=== PATIENT | male | born 1960 | race Caucasian/White ===

== ENCOUNTER 2022-02-10 15:55 | Inpatient (IN) ==
--- NOTE | 2022-02-10 16:30 | XRay Report ---
XR chest 1V portable HISTORY: Shortness of breath. COMPARISON: Chest 07/04/2021. FINDINGS: Dextroscoliosis of the thoracic spine again noted. The heart is normal in size. No focal sonal ng consolidations to suggest pneumonia. No evidence for pulmonary edema. No pleural effusions. No pne umothorax. Postoperative changes within the upper abdomen and right shoulder again noted. IMPRESSION: No significant change compared to the prior study. No acute process. ACT 112: Negative or not required by law. Electronically signed by: Braxton Rider M.D. 02/10/2022 4:28 PM
[2022-02-10] MEDS ORDERED: cefTRIAXone SODIUM 2,000 MG/70 ML BAG IV STA (17:58)
[2022-02-10] MEDS ORDERED: HYDROmorphone INJ 0.5 MG/0.5 ML SYR IV STA (17:58)
[2022-02-10] MEDS ORDERED: SODIUM CHLORIDE 0.9% 1000ML 1,000 ML IV STA (17:58)
[2022-02-10 18:32] LABS: Alanine Aminotransferase 202 U/L (7-52); Albumin Globulin Ratio 1.5 (0.9-2); Albumin Level 2.8 gm/dl (3.4-5.0); Alkaline Phosphatase 952 U/L (34-104); Anion Gap 18 (3-11); Aspartate Aminotransferase 279 U/L (13-39); BUN Creatinine Ratio 8.4 (10-20); Blood Urea Nitrogen 38 mg/dl (6-23); Calcium 6.4 mg/dl (8.5-10.1); Carbon Dioxide 11 mmol/L (21-32); Chloride 95 mmol/L (98-107); Est GFR (African American) 15.3 ml/min; Est GFR (Non-African American) 13.2 ml/min; Globulin 1.9 gm/dl (2.5-4.0); Glucose 87 mg/dl (70-99(Fasting)); INR 3.3 (0.9-1.1); Partial Thromboplastin Ratio 2.4; Potassium 3.3 mmol/L (3.5-5.1); Prothrombin Time 33.2 Seconds (9.0-12.0); Sodium 124 mmol/L (136-145); Total Protein 4.7 gm/dl (6.0-8.3)
[2022-02-10 18:37] LABS: Troponin I High Sensitivity 52.9 pg/ml (0-20)
[2022-02-10 18:39] LABS: Partial Thromboplastin Time 65.1 Seconds (21.0-31.0)
--- NOTE | 2022-02-10 19:09 | Emergency Department Note ---
Impression & Plan Bilateral cellulitis of lower leg, LIOR (acute kidney injury), Elevated LFTs, Bilateral edema of lower extremity, Elevated troponin, Acute hyponatremia ED Provider Note INFORMANT: Patient and family ED PROVIDER(S): Wilton Chang MD CHIEF COMPLAINT: Leg pain PLAN: Disposition: Admitted Condition: Guarded Outpatient prescription management: none Referral: None MEDICAL DECISION MAKING: Patient presented to emergency department because of leg pain. On physical examination this was very concerning for cellulitis. History is also very concerning because of his liver transplant status. work-up was initiated. The patient was found to have pancytopenia on CBC. His chemistry panel revealed hyponatremia as well as an elevated creatinine concerning for LIOR. The patient was gently hydrated. He was given broad-spectrum antibiotics. Patient was also given IV Dilaudid. Attempts at blood cultures were done multiple times but these were unsuccessful. Antibiotics were administered. The patient was also found to have a slightly elevated INR as well as elevated LFTs. He had low albumin and protein. His ECG did not show any acute ischemic change. The nonspecific inferior and anterior changes were resolved when compared to prior. Patient was found to have mildly elevated troponin. He will need further management in the hospital. [facility] Patient was evaluated in the ER admitted for further management Triage Nursing notes reviewed and agree them. Vital Signs: reviewed and remarkable for no significant abnormalities Differential diagnosis: Cellulitis, abscess, MRSA infection, DVT, necrotizing fasciitis, dermatitis, drug eruption, allergic reaction, as well as other pathologies. Diagnostics interpreted by me: ECG: Twelve-lead ECG reveals a sinus rhythm with PACs at 95 bpm. Septal Q wave. Prolonged QT present. When compared to July 04, 2021 the nonspecific T wave inferior and anterior changes resolved. Cardiac Monitoring: Cardiac monitoring ordered by me: The patient was placed on continuous cardiac monitoring and observed. It revealed a normal sinus rhythm at 99 beats per minute without evidence of dysrhythmia. Imaging studies: Ultrasound imaging of the bilateral lower extremities did not reveal any evidence of DVT Chest x-ray. Findings: A chest x-ray was performed and revealed no pneumothorax, effusion, infiltrate, pulmonary edema, free air under the diaphragm, or wide mediastinum. Impression: No acute disease. HPI: The patient is a 61year old male who presents to the Emergency Room with co mplaints of leg swelling and pain. This started a week ago and is worsening. The patient also notes the following associated symptoms, chills, redness to the skin on both legs, fluid weeping from the legs, chronic back pain. The patient has found no relieving factors. Current pain is rated as 9/10. Patient has a history of liver transportation. Patient denies any trauma to the legs. Pt denies LOC, headache, fevers, diaphoresis, visual changes, neck pain, chest pain, breathing difficulties, nausea, vomiting, abdominal pain, melena, hematochezia, urinary symptoms, numbness, weakness, lymphadenopathy, rash, or other complaints. ROS: See above HPI for pertinent positives & negatives. A total of 10 systems reviewed and were otherwise negative. PAST MEDICAL HISTORY:See Below , end-stage liver disease PAST SURGICAL HISTORY:See Below, liver transportation FAMILY HISTORY:See Below SOCIAL HISTORY:See Below, occasional alcohol HOME MEDICATIONS:See Below ALLERGIES:See Below VITALS:See Below PHYSICAL EXAMINATION: GENERAL: Awake, alert, uncomfortable-appearing, in no distress HENT: Normocephalic, atraumatic. Oropharynx unremarkable. EYES: Normal conjunctiva. Sclera mildly-icteric. NECK: Inspection normal. Non-tender. Supple. No nuchal rigidity. FROM. No masses. RESPIRATORY: Clear to auscultation. No wheezes. No rales. Normal respiratory effort. CARDIAC: Normal rate. Normal rhythm. No murmurs. No rubs. Extremities warm and well perfused. Pulses equal. No JVD. GI: Soft, non-distended. No tenderness to palpation. No rebound or guarding. No masses. RECTAL: Deferred. MUSCULOSKELETAL: Atraumatic. Chest examination reveals no tenderness. The back is symmetrical on inspection without obvious abnormality. There is no CVA tenderness to palpation. No joint edema. LOWER EXTREMITIES: Calves are equal size bilaterally and moderately-tender. 3+ edema. Significant erythematous discoloration. NEURO: Normal sensorium. No sensory or motor deficits noted. SKIN: No rash or jaundice noted. CRITICAL CARE: I have personally spent greater than 31 minutes of critical care time in the direct management of this patient. This includes bedside care, interpretation of diagnostic studies, and testing, discussion with consultants, patient, and family members, and other required patient management activities. These minutes are in excess of all separately billable procedures. Wilton Chang MD Past Med/Surg History Social History Smoking Status: Never smoker Second Hand Exposure: Yes; Do You Dip or Chew Tobacco: No; Tobacco Cessation Education Requested by Patient: No Hx Alcohol Use: Yes Alcohol type: beer Hx Substance Use: No Preferred Language: Slovenian Communication Ability: Impaired Manager Strategy Required: No Beliefs That Will Affect Care: Buddhism Current Living Situation: Alone Current Living Situation Comment: house Other Information That Helps Us Care for You: Yes (sister yesterday) Feels Safe at Home: Yes Safety Concerns: Feels Safe At This Time Assistive Devices: Cane Allergies Allergies Allergy/AdvReac Type Severity Reaction Status Date / Time sulfamethoxazole Allergy Hives Unverified 07/04/21 08:55 [From Bactrim] trimethoprim [From Bactrim] Allergy Hives Unverified 07/04/21 08:55 Home Meds Home Medications Medication Instructions Recorded Confirmed snrgmrir-hxh-thydr acid 500 1 tab PO QAM 12/19/20 07/04/21 mcg-lycopene 300 mcg-lutein 250 mcg tablet ondansetron 4 mg disintegrating 4 mg PO QID PRN Nausea 12/19/20 07/04/21 tablet thiamine HCl (vitamin B1) 100 mg 100 mg PO QAM 12/19/20 07/04/21 tablet ergocalciferol (vitamin D2) 1,250 50,000 unit PO WK 07/04/21 07/04/21 mcg (50,000 unit) capsule (Vitamin D2) folic acid 1 mg tablet 1 mcg PO QAM 07/04/21 07/04/21 magnesium oxide 400 mg (241.3 mg 400 mg PO BID 07/04/21 07/04/21 magnesium) tablet methylprednisolone 4 mg tablet 4 mg PO QAM 07/04/21 07/04/21 mycophenolate sodium 180 mg 360 mg PO BID 07/04/21 07/04/21 tablet,delayed release nifedipine 30 mg tablet,extended 30 mg PO HS 07/04/21 07/04/21 release 24 hr pantoprazole 40 mg tablet,delayed 40 mg PO BID 07/04/21 07/04/21 release sennosides 8.6 mg-docusate sodium 2 tab PO DAILY PRN Constipation 07/04/21 07/04/21 50 mg tablet (Stimulant Laxative Plus) sucralfate 1 gram tablet 1 g PO BID 07/04/21 07/04/21 tacrolimus 1 mg capsule, 1 mg PO BID 07/04/21 07/04/21 immediate-release tacrolimus 5 mg capsule, 5 mg PO BID 07/04/21 07/04/21 immediate-release Results & Data (ED) Vital Signs Vital Signs - 24 hr 02/10/22 17:55 02/10/22 19:00 02/10/22 21:00 Pulse Rate [Apical] 95 H 96 H Respiratory Rate 18 16 Respiratory Effort / Characteristics Non-Labored Non-Labored Respiratory Depth Normal Normal Blood Pressure [Left Arm] 128/78 Blood Pressure Mean [Left Arm] 94 Pulse Oximetry 98 95 Oxygen Delivery Method Room Air Room Air Laboratory Data Result diagrams: 02/11/22 05:44 02/11/22 07:00 Lab Results 02/10/22 02/10/22 02/10/22 Range/Units 17:47 17:47 17:47 WBC 3.39 L (4.8-10.8) K/ul RBC 3.96 L (4.63-6.08) M/uL Hgb 11.9 L (14.0-18.0) g/dl Hct 33.2 L (40.1-51.0) % MCV 83.8 (80.0-100.0) fL MCH 30.1 (25.0-34.0) pg MCHC 35.8 (32.0-36.0) g/dL RDW Std Deviation 50.0 H (36.4-46.3) fL RDW Coeff of Ariane 16.5 H (11.5-14.5) % Plt Count 92 L (130-400) K/uL MPV 10.4 (9.4-12.4) fL Immature Gran % (Auto) 5.0 % Neut % (Auto) 60.8 % Lymph % (Auto) 28.9 % Marion % (Auto) 4.4 % Eos % (Auto) 0.3 % Baso % (Auto) 0.6 % Neut # (Auto) 2.06 (1.4-6.5) K/uL Lymph # (Auto) 0.98 L (1.2-3.4) K/uL Marion # (Auto) 0.15 L (0.24-0.82) K/uL Eos # (Auto) 0.01 (0-0.50) K/uL Baso # (Auto) 0.02 (0-0.2) K/uL Immature Gran # (Auto) 0.17 H (0.00-0.02) K/uL Platelet Estimate Decreased L (Normal) Polychromasia 1+ Target Cells 1+ PT 33.2 H (9.0-12.0) Seconds INR 3.3 H (0.9-1.1) APTT 65.1 H* (21.0-31.0) Seconds PTT Ratio 2.4 Sodium 124 L (136-145) mmol/L Potassium 3.3 L (3.5-5.1) mmol/L Chloride 95 L (98-107) mmol/L Carbon Dioxide 11 L (21-32) mmol/L Anion Gap 18 H (3-11) BUN 38 H (6-23) mg/dl Creatinine 4.53 H* (0.6-1.4) mg/dl Est Cr Clr Drug Dosing Not Reportable Est GFR ( Amer) 15.3 ml/min Est GFR (Non-Af Amer) 13.2 ml/min BUN/Creatinine Ratio 8.4 L (10-20) Glucose 87 (70-99(Fasting)) mg/dl Calcium 6.4 L (8.5-10.1) mg/dl Total Bilirubin 8.0 H (0.2-1.0) mg/dl AST 279 H (13-39) U/L ALT 202 H (7-52) U/L Alkaline Phosphatase 952 H (34-104) U/L Troponin I High Sens 52.9 H* (0-20) pg/ml B-Natriuretic Peptide (0-100) pg/ml Total Protein 4.7 L (6.0-8.3) gm/dl Albumin 2.8 L (3.4-5.0) gm/dl Globulin 1.9 L (2.5-4.0) gm/dl Albumin/Globulin Ratio 1.5 (0.9-2) SARS-CoV-2, RNA, NAAT (NEGATIVE) 02/10/22 02/10/22 Range/Units 17:47 18:10 WBC (4.8-10.8) K/ul RBC (4.63-6.08) M/uL Hgb (14.0-18.0) g/dl Hct (40.1-51.0) % MCV (80.0-100.0) fL MCH (25.0-34.0) pg MCHC (32.0-36.0) g/dL RDW Std Deviation (36.4-46.3) fL RDW Coeff of Ariane (11.5-14.5) % Plt Count (130-400) K/uL MPV (9.4-12.4) fL Immature Gran % (Auto) % Neut % (Auto) % Lymph % (Auto) % Marion % (Auto) % Eos % (Auto) % Baso % (Auto) % Neut # (Auto) (1.4-6.5) K/uL Lymph # (Auto) (1.2-3.4) K/uL Marion # (Auto) (0.24-0.82) K/uL Eos # (Auto) (0-0.50) K/uL Baso # (Auto) (0-0.2) K/uL Immature Gran # (Auto) (0.00-0.02) K/uL Platelet Estimate (Normal) Polychromasia Target Cells PT (9.0-12.0) Seconds INR (0.9-1.1) APTT (21.0-31.0) Seconds PTT Ratio Sodium (136-145) mmol/L Potassium (3.5-5.1) mmol/L Chloride (98-107) mmol/L Carbon Dioxide (21-32) mmol/L Anion Gap (3-11) BUN (6-23) mg/dl Creatinine (0.6-1.4) mg/dl Est Cr Clr Drug Dosing Est GFR ( Amer) ml/min Est GFR (Non-Af Amer) ml/min BUN/Creatinine Ratio (10-20) Glucose (70-99(Fasting)) mg/dl Calcium (8.5-10.1) mg/dl Total Bilirubin (0.2-1.0) mg/dl AST (13-39) U/L ALT (7-52) U/L Alkaline Phosphatase (34-104) U/L Troponin I High Sens (0-20) pg/ml B-Natriuretic Peptide 319 H (0-100) pg/ml Total Protein (6.0-8.3) gm/dl Albumin (3.4-5.0) gm/dl Globulin (2.5-4.0) gm/dl Albumin/Globulin Ratio (0.9-2) SARS-CoV-2, RNA, NAAT NEGATIVE (NEGATIVE) Administered Medications Calcium Carbonate (Calcium Carbonate 500 Mg Chewable Tab) 500 mg PO BID PRN PRN Reason: Indigestion Stop: 03/13/22 00:40 Last Admin: 02/11/22 01:08 Dose: 500 mg Documented By: JOSI Folic Acid (Folic Acid 1 Mg Tab) 1 mg PO QAM SAMUEL Stop: 03/13/22 08:59 Last Admin: 02/11/22 10:53 Dose: Not Given Documented By: DON Hydromorphone HCl (Hydromorphone Inj 0.5 Mg/0.5 Ml Syr) 0.25 mg IV Q3H PRN PRN Reason: Pain Stop: 02/24/22 22:20 Last Admin: 02/11/22 15:24 Dose: 0.25 mg Documented By: Admin: 02/11/22 11:46 Dose: 0.25 mg Documented By: Admin: 02/11/22 08:40 Dose: 0.25 mg Documented By: Admin: 02/11/22 05:40 Dose: 0.25 mg Documented By: Admin: 02/10/22 23:29 Dose: 0.25 mg Documented By: JOSI Daptomycin 300 mg/ Syringe 6 mls @ 3 mls/min IV Q48H SAMUEL; Protocol Stop: 02/17/22 22:59 Last Admin: 02/10/22 23:42 Dose: 3 mls/min Documented By: JOSI Piperacillin Sod/Tazobactam (Sod 3.375 gm/ Dextrose) 115 mls @ 28.75 mls/hr IV Q12H SAMUEL; Protocol Stop: 02/18/22 07:59 Last Infusion: 02/11/22 13:15 Dose: 0 mls/hr Documented By: Admin: 02/11/22 08:28 Dose: 28.8 mls/hr Documented By: DON Sodium Chloride (Nss 1000ml) 1,000 mls @ 80 mls/hr IV .[id number] SAMUEL Stop: 03/13/22 15:44 Last Admin: 02/11/22 15:48 Dose: 80 mls/hr Documented By: DON Magnesium Oxide (Magnesium Oxide 400 Mg Tab) 400 mg PO BID SAMUEL Stop: 03/13/22 08:59 Last Admin: 02/11/22 08:29 Dose: 400 mg Documented By: DON Methylprednisolone (Methylprednisolone 4 Mg Tab) 4 mg PO QAM SAMUEL Stop: 03/13/22 08:59 Last Admin: 02/11/22 10:53 Dose: Not Given Documented By: DON Multivitamins/Minerals (Cerovite Adv Formula Tab) 1 tab PO QAM [facility] Stop: 03/13/22 08:59 Last Admin: 02/11/22 10:53 Dose: Not Given Documented By: DON Ondansetron HCl (Ondansetron 4 Mg Od Tab) 4 mg PO QID PRN PRN Reason: Nausea Stop: 03/12/22 22:45 Last Admin: 02/11/22 00:26 Dose: 4 mg Documented By: JOSI Pantoprazole Sodium (Pantoprazole 40 Mg Tab) 40 mg PO BID SAMUEL Stop: 03/13/22 08:59 Last Admin: 02/11/22 08:29 Dose: 40 mg Documented By: DON Sucralfate (Sucralfate 1 Gm Tab) 1 gm PO BID SAMUEL Stop: 03/13/22 08:59 Last Admin: 02/11/22 08:29 Dose: 1 gm Documented By: DON Thiamine HCl (Thiamine Hcl 100 Mg Tab) 100 mg PO QAM [facility] Stop: 03/13/22 08:59 Last Admin: 02/11/22 10:53 Dose: Not Given Documented By: DON Discontinued Medications Hydromorphone HCl (Hydromorphone Inj 0.5 Mg/0.5 Ml Syr) 0.5 mg IV NOW STA Stop: 02/10/22 17:59 Last Admin: 02/10/22 18:09 Dose: 0.5 mg Documented By: OL Hydromorphone HCl (Hydromorphone Inj 0.5 Mg/0.5 Ml Syr) 0.5 mg IV NOW STA Stop: 02/11/22 00:39 Last Admin: 02/11/22 00:53 Dose: 0.5 mg Documented By: JOSI Hydromorphone HCl (Hydromorphone Inj 0.5 Mg/0.5 Ml Syr) 0.25 mg IV NOW STA Stop: 02/11/22 06:20 Last Admin: 02/11/22 06:27 Dose: 0.25 mg Documented By: JOSI Hydromorphone HCl (Hydromorphone Inj 0.5 Mg/0.5 Ml Syr) 0.25 mg IV NOW STA Stop: 02/11/22 11:03 Last Admin: 02/11/22 11:05 Dose: 0.25 mg Documented By: DON Ceftriaxone Sodium (Rocephin) 2,000 mg in 70 mls @ 140 mls/hr IV NOW STA Stop: 02/10/22 18:27 Last Infusion: 02/10/22 21:12 Dose: 0 mls/hr Documented By: Admin: 02/10/22 20:42 Dose: 140 mls/hr Documented By: ANMOL Sodium Chloride (Nss 1000ml) 1,000 mls @ 125 mls/hr IV .Q8H STA Stop: 02/11/22 01:57 Last Infusion: 02/11/22 00:32 Dose: 0 mls/hr Documented By: Admin: 02/10/22 20:43 Dose: 125 mls/hr Documented By: ANMOL Albumin Human (Albumin 25% 100 Ml) 25 gm in 100 mls @ 50 mls/hr IV Q2H SAMUEL Stop: 02/11/22 03:59 Last Infusion: 02/11/22 06:06 Dose: 0 mls/hr Documented By: Admin: 02/11/22 04:06 Dose: 50 mls/hr Documented By: Infusion: 02/11/22 02:28 Dose: 0 mls/hr Documented By: Admin: 02/11/22 00:28 Dose: 50 mls/hr Documented By: JOSI Piperacillin Sod/Tazobactam (Sod 3.375 gm/ Dextrose) 115 mls @ 230 mls/hr IV 2330 ONE; Protocol Stop: 02/10/22 23:59 Last Infusion: 02/11/22 00:18 Dose: 0 mls/hr Documented By: Admin: 02/10/22 23:48 Dose: 230 mls/hr Documented By: JOSI Famotidine 20 mg/ Syringe 5 mls @ 2.5 mls/min IV NOW STA Stop: 02/11/22 01:34 Last Admin: 02/11/22 02:22 Dose: 2.5 mls/min Documented By: JOSI Lorazepam 0.25 mg/ Syringe 0.25 mls @ 2 mls/min IV NOW STA Stop: 02/11/22 09:17 Last Admin: 02/11/22 09:34 Dose: 2 mls/min Documented By: DON Lorazepam (Lorazepam 1 Mg Tab) 1 mg SL NOW STA Stop: 02/11/22 10:29 Last Admin: 02/11/22 10:42 Dose: 1 mg Documented By: DON Imaging Data Radiologist's Impression: Venous Doppler Study 02/10/22 17:58 BILATERAL LOWER EXTREMITY VENOUS DOPPLER HISTORY: leg swelling COMPARISON STUDY: None. FINDINGS: There is normal compressibility, flow, and augmentation within the bi lateral lower extremity deep venous systems. The right posterior tibial vein was not visualized due to the subcutaneous edema/swelling. IMPRESSION: No DVT within the visualized right or left lower extremity. ACT 112: Negative or not required by law. Electronically signed by: Braxton Rider M.D. 02/11/2022 6:05 AM Discharge Plan Visit Data Chief Complaint: Leg Injury/Pain Stated Complaint: EDEMA, FLUID LEAKING FROM LEGS ED Provider: Wilton Chang Discharge Problem: Bilateral cellulitis of lower leg, LIOR (acute kidney injury), Elevated LFTs, Bilateral edema of lower extremity, Elevated troponin, Acute hyponatremia Patient Disposition: Admitted As Inpatient Condition: Serious Discharge Instructions Interventions: ED Discharge Assessment Last Done: 02/10/22 23:13
[2022-02-10 20:20] LABS: Hematocrit (blood only) 33.2 % (40.1-51.0); Hemoglobin 11.9 g/dl (14.0-18.0); White Blood Count 3.39 K/ul (4.8-10.8)
[2022-02-10 20:21] LABS: Basophils # (auto) 0.02 K/uL (0-0.2); Basophils % (auto) 0.6 %; Eosinophils # (auto) 0.01 K/uL (0-0.50); Eosinophils % (auto) 0.3 %; Immature Granulocytes # (auto) 0.17 K/uL (0.00-0.02); Lymphocytes # (auto) 0.98 K/uL (1.2-3.4); Lymphocytes % (auto) 28.9 %; Mean Corpuscular Hemoglobin 30.1 pg (25.0-34.0); Mean Corpuscular Hgb Conc 35.8 g/dL (32.0-36.0); Mean Corpuscular Volume 83.8 fL (80.0-100.0); Mean Platelet Volume 10.4 fL (9.4-12.4); Monocytes # (auto) 0.15 K/uL (0.24-0.82); Monocytes % (auto) 4.4 %; Neutrophils # (auto) 2.06 K/uL (1.4-6.5); Neutrophils % (auto) 60.8 %; Platelet Count 92 K/uL (130-400); Platelet Estimate Decreased (Normal); Polychromasia 1+; RDW Coefficient of Variation 16.5 % (11.5-14.5); Red Blood Count 3.96 M/uL (4.63-6.08); Target Cells 1+
[2022-02-10] MEDS ORDERED: NITROGLYCERIN SL 0.4 MG/TAB TAB SL PRN (22:46)
[2022-02-10] MEDS ORDERED: ONDANSETRON 4 MG OD TAB PO PRN (22:46)
[2022-02-10] MEDS ORDERED: PIPERACILLIN/TAZOBACTAM 2.25 GM in DEXTROSE 5% 100 ML IV SCH (22:46)
[2022-02-10] MEDS ORDERED: DOCUSATE SODIUM/SENNA 50/8.6MG TAB PO PRN (22:46)
[2022-02-10] MEDS ORDERED: DAPTOmycin 300 MG in SYRINGE 0 ML IV SCH (23:00)
[2022-02-10] MEDS: HYDROmorphone INJ 0.5 MG/0.5 ML SYR IV PRN (23:29)
[2022-02-10] MEDS ORDERED: PIPERACILLIN/TAZOBACTAM 3.375 GM in DEXTROSE 5% 100 ML IV ONE (23:30)
--- NOTE | 2022-02-10 23:53 | History and Physical Report ---
DATE OF ADMISSION: 02/10/2022. CHIEF COMPLAINT: Lower extremity edema and pain. HISTORY OF PRESENT ILLNESS: A 61-year-old male with past medical history significant for familial Mediterranean fever, history of alcoholism, chronic hypervolemic hyponatremia, history of acute liver injury secondary to alcoholism, status post transplant in 2020 at [facility], presents with worsening lower extremity edema. The patient says since last 1 week, he is getting worsening lower extremity edema, erythema and pain. He was able to ambulate with a cane, but in the last few days, he is not able to ambulate. He lives alone. His sisters lives close by. His appetite is down. He has a lot of nausea and not able to eat much. Had some low-grade fever at home. Normal bowel and bladder movements. Denies abdominal pain, no back pain. He states he also has some mild chest discomfort in the last few days. Denies any shortness of breath, no cough, no headache. His vision is not that great. No earache, no runny nose. He has some sore throat, no difficulty swallowing. Currently, resting comfortably and hemodynamically stable. ALLERGIES: BACTRIM. PAST MEDICAL HISTORY: As mentioned above. PAST SURGICAL HISTORY: Liver transplant, history of Shefali-en-Y gastric bypass surgery, also history of back and shoulder surgery. FAMILY HISTORY: Unspecified cancer. SOCIAL HISTORY: History of alcoholism. Currently, still drinking 2 beers every other day. As per records, no smoking, no drugs. REVIEW OF SYSTEMS: As per HPI. Rest of the review of systems is negative. PHYSICAL EXAMINATION: GENERAL: The patient is of moderate build, not in acute distress. VITAL SIGNS: Temperature 36.9, pulse 96, respiratory rate 16, blood pressure 128/78, oxygen 95% on room air. HEENT: Icterus present. Pupils equal, round and reactive to light. Oral mucosa moist. NECK: No JVD, no neck masses. CARDIOVASCULAR: S1 and S2 heard. Regular rate and rhythm. No murmur, no gallop. RESPIRATORY SYSTEM: Normal AP diameter. No accessory muscle use. No wheezing, no crackles. ABDOMEN: Soft, bowel sounds present, nontender, no distention. CENTRAL NERVOUS SYSTEM: Alert and oriented. No facial droop. Speech is clear. Insight is okay. Obeys simple commands. Moves extremities. EXTREMITIES: Bilateral lower extremity gross edema with erythematous changes up to the knee with tenderness on palpation and weeping. LABORATORY DATA: WBC 3.3, hemoglobin 11.9, hematocrit 33.2, platelets 92. PT 33.2, INR 3.3, APTT 65.1. Sodium 124, potassium 3.3, chloride 95, CO2 of 11, anion gap of 18, BUN 38, creatinine 4.5, serum glucose 87, calcium 6.4, total bilirubin 8, AST 279, ALT 202, alkaline phosphatase 952. Troponin I high sensitivity 52 BNP 319. Albumin 2.8. SARS-CoV-2 rapid test negative. Chest x-ray: No acute findings. EKG: Sinus rhythm with PACs at a rate of 95, left anterior fascicular block, prolonged QTc of 500. Venous Doppler study results are pending. ASSESSMENT AND PLAN: This is a 61-year-old male with history of alcoholic liver cirrhosis, status post liver transplant, presents with lower extremity edema, swelling and also has elevated liver function tests and acute kidney injury. 1. Lower extremity edema, worsening, mostlikely secondary to worsening renal function and liver function. Doppler studies are pending. Possible cellulitis. We will also get a CAT scan to rule out any abscess. Empirically starting on Zosyn and daptomycin. Follow the cultures. Follow the response. 2. Possible hepatorenal with creatinine of 4.5 and worsening liver function tests. The patient is status post liver transplant in 2020 at [facility]. Discussed with transplant center, Dr. Velez. He recommended to give albumin and follow the laboratories in the morning. If the kidney function is worsening, advised to call him back and also advised to hold on tacrolimus and CellCept and advised to check tacrolimus levels. He also gave direct hepatology line, number is and [facility] line number is . The patient's transplant doctor is Dr. Gwyn Aquino. We will follow the repeat laboratories in the a.m. We will 25% 50gm albumin for now. He received some fluids in the Emergency Room. 2. Ongoing alcoholism. He says he is still drinking 2 beers every other day. We will monitor for any withdrawal with Ativan p.r.n. Continue his home thiamine. 3. Chest pain. Mild elevation of troponin could be from renal function. Will follow repeat troponin levels.Still having chest pans, will egt echo and cardio consult in am. Repeat ekg in am Incomplete LBBB? 4. Qt prolongation. To avoid Qt prolonging drugs. Follow repeat ekg. 5. Gastroesophageal reflux disease. Continue Protonix and sucralfate. 6. Deep venous thrombosis prophylaxis. His INR is 3.3 and platelets are 92. DISPOSITION: Closely monitor in the tele floor. Level 1, full code as per my discussion with the patient. Job ID: [id number] RACHID
[2022-02-11] MEDS: ALBUMIN 25% 100 mL 25 GM/100 ML VIAL IV SCH ×2 (00:28→04:06)
[2022-02-11] MEDS ORDERED: HYDROmorphone INJ 0.5 MG/0.5 ML SYR IV STA ×3 (00:38→11:02)
[2022-02-11] MEDS ORDERED: CALCIUM CARBONATE 500 MG CHEWABLE TAB PO PRN (00:41)
[2022-02-11] MEDS ORDERED: FAMOTIDINE 20 MG in SYRINGE 3 ML IV STA (01:33)
[2022-02-11] MEDS: HYDROmorphone INJ 0.5 MG/0.5 ML SYR IV PRN ×5 (05:40→19:56)
[2022-02-11 05:54] LABS: Hematocrit (blood only) 24.8 % (40.1-51.0); Hemoglobin 9.1 g/dl (14.0-18.0); Mean Platelet Volume 12.2 fL (9.4-12.4); Platelet Count 82 K/uL (130-400); White Blood Count 3.15 K/ul (4.8-10.8)
--- NOTE | 2022-02-11 06:07 | Ultrasound Report ---
BILATERAL LOWER EXTREMITY VENOUS DOPPLER HISTORY: leg swelling COMPARISON STUDY: None. FINDINGS: There is normal compressibility, flow, and augmentation within the bilateral lower extremit y deep venous systems. The right posterior tibial vein was not visualized due to the subcutaneous jeremy ma/swelling. IMPRESSION: No DVT within the visualized right or left lower extremity. ACT 112: Negative or not required by law. Electronically signed by: Braxton Rider M.D. 02/11/2022 6:05 AM
[2022-02-11] MEDS ORDERED: LORazepam 0.5 MG in SYRINGE 0.25 ML IV PRN (06:20)
[2022-02-11 06:38] LABS: ALC (manual) 0.76 K/uL (1.2-3.4); ANC (manual) 2.33 K/uL (1.4-6.5); Basophils # (manual) 0.06 K/uL (0-0.2); Basophils % (manual) 2 %; Echinocytes 2+; Lymphocytes # (manual) 0.76 K/uL (1.2-3.4); Lymphocytes % (manual) 24 %; Macrocytosis Present; Mean Corpuscular Hemoglobin 31.6 pg (25.0-34.0); Mean Corpuscular Hgb Conc 36.7 g/dL (32.0-36.0); Mean Corpuscular Volume 86.1 fL (80.0-100.0); Neutrophils # (manual) 2.33 K/uL (1.4-6.5); Neutrophils % (manual) 74 %; Nucleated RBC # (auto) 0.12 K/uL (0-0); Nucleated RBC % (auto) 3.8 %; Polychromasia 1+; RDW Coefficient of Variation 17.2 % (11.5-14.5); RDW Standard Deviation 52.7 fL (36.4-46.3); Red Blood Count 2.88 M/uL (4.63-6.08); Target Cells 1+
[2022-02-11] MEDS ORDERED: PIPERACILLIN/TAZOBACTAM 3.375 GM in DEXTROSE 5% 100 ML IV SCH (08:00)
[2022-02-11] MEDS: CEROVITE ADV FORMULA TAB PO SCH ×2 (08:28→10:53)
[2022-02-11] MEDS: THIAMINE HCL 100 MG TAB PO SCH ×2 (08:29→10:53)
[2022-02-11] MEDS: FOLIC ACID 1 MG TAB PO SCH ×2 (08:29→10:53)
[2022-02-11] MEDS: methylPREDNISolone 4 MG TAB PO SCH ×2 (08:29→10:53)
[2022-02-11] MEDS ORDERED: PANTOprazole 40 MG TAB PO SCH (09:00)
[2022-02-11] MEDS ORDERED: SUCRALFATE 1 GM TAB PO SCH (09:00)
[2022-02-11] MEDS ORDERED: MAGNESIUM OXIDE 400 MG TAB PO SCH (09:00)
--- NOTE | 2022-02-11 09:03 | Gastrointestinal Consultation ---
Date of Consultation February 11, 2022 Assessment & Plan (1) Elevated LFTs: Patient presenting with a very complex case given his post transplant liver. It appears that our internal medicine service did reach out to his hepatology service at [facility] and have been following the recommendations. I would recommend that a CT be performed to screen for ongoing alcohol abuse as the patient does seem to have evidence of withdrawal today. In addition we should screen for opportunistic infection such as CMV given his ongoing use of immunosuppression. I would also suggest a right upper quadrant ultrasound as he initial modality to evaluate his biliary tree. Please note that an post transp lant liver dilation of the biliary tree often does not occur. given the complexity of the patient's presentation I wonder if he would be best served at a tertiary care center with subspecialty expertise and transplantation Recommendations Right upper quadrant ultrasound Continue IV hydration and other supportive care Nephrology input may be beneficial for this patient Consider treatment for with drawl of alcohol Await tacrolimus level Serologies for CMV, HCV, hepatitis B, HAV and HCV Carbohydrate deficient transferrin to screen for ongoing alcohol abuse History of Present Illness Reason for Consultation: Jaundice Requesting Physician: Dr. Stone / Dr. Lemus Attending Physician: Kam Stone MD History of Present Illness The patient is a 61-year-old male with a history of alcohol abuse who underwent a liver transplantation at [facility] in 2020. He presented to the emergency room with worsening lower extremity discomfort, labs showed a significant change in his liver associated enzymes and worsening renal function. During my examination today the patient is quite confused and tremulous suggestive of drawl. Of note based on the record it appears that the patient is currently drinking alcohol and admits to at least 2 alcoholic beverages per day despite his transplant status. Allergies Allergy/AdvReac Type Severity Reaction Status Date / Time sulfamethoxazole Allergy Hives Unverified 07/04/21 08:55 [From Bactrim] trimethoprim [From Bactrim] Allergy Hives Unverified 07/04/21 08:55 Home Medications Medication Instructions Recorded Confirmed Type [id number] acid 500 1 tab PO QAM 12/19/20 07/04/21 History mcg-lycopene 300 mcg-lutein 250 mcg tablet ondansetron 4 mg disintegrating 4 mg PO QID PRN Nausea 12/19/20 07/04/21 History tablet thiamine HCl (vitamin B1) 100 mg 100 mg PO QAM 12/19/20 07/04/21 History tablet ergocalciferol (vitamin D2) 1,250 50,000 unit PO WK 07/04/21 07/04/21 History mcg (50,000 unit) capsule (Vitamin D2) folic acid 1 mg tablet 1 mcg PO QAM 07/04/21 07/04/21 History magnesium oxide 400 mg (241.3 mg 400 mg PO BID 07/04/21 07/04/21 History magnesium) tablet methylprednisolone 4 mg tablet 4 mg PO QAM 07/04/21 07/04/21 History mycophenolate sodium 180 mg 360 mg PO BID 07/04/21 07/04/21 History tablet,delayed release nifedipine 30 mg tablet,extended 30 mg PO HS 07/04/21 07/04/21 History release 24 hr pantoprazole 40 mg tablet,delayed 40 mg PO BID 07/04/21 07/04/21 History release sennosides 8.6 mg-docusate sodium 2 tab PO DAILY PRN Constipation 07/04/21 07/04/21 History 50 mg tablet (Stimulant Laxative Plus) sucralfate 1 gram tablet 1 g PO BID 07/04/21 07/04/21 History tacrolimus 1 mg capsule, 1 mg PO BID 07/04/21 07/04/21 History immediate-release tacrolimus 5 mg capsule, 5 mg PO BID 07/04/21 07/04/21 History immediate-release Patient History Social History Smoking Status: Never smoker Second Hand Exposure: Yes; Do You Dip or Chew Tobacco: No; Tobacco Cessation Education Requested by Patient: No Hx Alcohol Use: Yes Alcohol type: beer Hx Substance Use: No Preferred Language: Mongolian Communication Ability: Effective Vehicle And Equipment Cleaner Required: No Beliefs That Will Affect Care: Confucianism Current Living Situation: Alone Current Living Situation Comment: house Other Information That Helps Us Care for You: Yes (sister yesterday) Feels Safe at Home: Yes Safety Concerns: Feels Safe At This Time Assistive Devices: Glasses Review of Systems Constitutional: + fatigue, + malaise and + weakness; no chills Eyes: no diplopia Ear, Nose, Mouth, Throat: no tinnitus and no dizziness Respiratory: no cough, no change in sputum and no hemoptysis Cardiovascular: no chest pain and no chest pain with activity Gastrointestinal: no vomiting, no hematemesis and no pain with swallowing Musculoskeletal: + radicular pain and + swelling Integumentary: no skin ulcer Neurologic: no falls Endocrine: + fatigue Hematologic / Lymphatic: + easy bleeding and + easy bruising Physical Exam Constitutional: + ill appearing and + disheveled Eyes: scleral icterus Neck: trachea midline, no thyromegaly Respiratory: Auscultation: + wheezes; no crackles and no rales Cardiovascular: Heart Sounds: + murmur Gastrointestinal (Abdomen): Inspection/Auscultation: + abdominal surgical scar; abdomen not distended Skin: spider nevi noted Neurologic: moves all extremities, awake and + confused Motor/Sensory: + tremor; no asterixis Results & Data ([facility]) Vital Signs (Past 12 Hours) Vital Signs Temp Pulse Pulse Resp BP Pulse Ox Pulse Ox 02/11/22 03:06 36.4 C L 92 H 16 154/73 H 96 02/10/22 23:00 98 H 02/10/22 23:00 02/10/22 22:46 36.5 C 104 H 18 123/55 L 97 02/10/22 22:46 97 02/10/22 23:13 101 H 96 02/10/22 22:30 36.5 C 104 H 18 123/55 L 97 O2 Del Method O2 Del Method 02/11/22 03:06 Room Air 02/10/22 23:00 02/10/22 23:00 Room Air 02/10/22 22:46 Room Air 02/10/22 22:46 Room Air 02/10/22 23:13 Room Air 02/10/22 22:30 Room Air Laboratory Results Laboratory Results - last 24 hr 02/10/22 02/10/22 02/10/22 17:47 17:47 17:47 WBC 3.39 L RBC 3.96 L Hgb 11.9 L Hct 33.2 L MCV 83.8 MCH 30.1 MCHC 35.8 RDW Std Deviation 50.0 H RDW Coeff of Ariane 16.5 H Plt Count 92 L MPV 10.4 Immature Gran % (Auto) 5.0 Neut % (Auto) 60.8 Lymph % (Auto) 28.9 [place] % (Auto) 4.4 Eos % (Auto) 0.3 Baso % (Auto) 0.6 Neut # (Auto) 2.06 Lymph # (Auto) 0.98 L [place] # (Auto) 0.15 L Eos # (Auto) 0.01 Baso # (Auto) 0.02 Immature Gran # (Auto) 0.17 H Absolute Nucleated RBC Nucleated RBC % (auto) Neutrophils % (Manual) Lymphocytes % (Manual) Basophils % (Manual) Neutrophils # (Manual) Total Absolute Neuts Lymphocytes # (Manual) Total Abs Lymphocytes Basophils # (Manual) Platelet Estimate Decreased L Polychromasia 1+ Macrocytosis Target Cells 1+ Echinocytes PT 33.2 H INR 3.3 H APTT 65.1 H* PTT Ratio 2.4 Sodium 124 L Potassium 3.3 L Chloride 95 L Carbon Dioxide 11 L Anion Gap 18 H BUN 38 H Creatinine 4.53 H* POC Creatinine Est Cr Clr Drug Dosing Not Reportable Est GFR ( Amer) 15.3 Est GFR (Non-Af Amer) 13.2 BUN/Creatinine Ratio 8.4 L Glucose 87 Calcium 6.4 L Magnesium Total Bilirubin 8.0 H Direct Bilirubin AST 279 H ALT 202 H Alkaline Phosphatase 952 H Troponin I High Sens 52.9 H* B-Natriuretic Peptide Total Protein 4.7 L Albumin 2.8 L Globulin 1.9 L Albumin/Globulin Ratio 1.5 Tacrolimus SARS-CoV-2, RNA, NAAT Ref Lab Test Result 02/10/22 02/10/22 02/10/22 17:47 17:47 18:10 WBC RBC Hgb Hct MCV MCH MCHC RDW Std Deviation RDW Coeff of Ariane Plt Count MPV Immature Gran % (Auto) Neut % (Auto) Lymph % (Auto) [place] % (Auto) Eos % (Auto) Baso % (Auto) Neut # (Auto) Lymph # (Auto) [place] # (Auto) Eos # (Auto) Baso # (Auto) Immature Gran # (Auto) Absolute Nucleated RBC Nucleated RBC % (auto) Neutrophils % (Manual) Lymphocytes % (Manual) Basophils % (Manual) Neutrophils # (Manual) Total Absolute Neuts Lymphocytes # (Manual) Total Abs Lymphocytes Basophils # (Manual) Platelet Estimate Polychromasia Macrocytosis Target Cells Echinocytes PT INR APTT PTT Ratio Sodium Potassium Chloride Carbon Dioxide Anion Gap BUN Creatinine POC Creatinine Est Cr Clr Drug Dosing Est GFR ( Amer) Est GFR (Non-Af Amer) BUN/Creatinine Ratio Glucose Calcium Magnesium Total Bilirubin Direct Bilirubin AST ALT Alkaline Phosphatase Troponin I High Sens B-Natriuretic Peptide 319 H Total Protein Albumin Globulin Albumin/Globulin Ratio Tacrolimus Pending SARS-CoV-2, RNA, NAAT NEGATIVE Ref Lab Test Result 02/11/22 02/11/22 02/11/22 05:44 05:44 05:44 WBC 3.15 L RBC 2.88 L Hgb 9.1 L Hct 24.8 L MCV 86.1 MCH 31.6 MCHC 36.7 H RDW Std Deviation 52.7 H RDW Coeff of Ariane 17.2 H Plt Count 82 L MPV 12.2 Immature Gran % (Auto) Neut % (Auto) Lymph % (Auto) [place] % (Auto) Eos % (Auto) Baso % (Auto) Neut # (Auto) Lymph # (Auto) [place] # (Auto) Eos # (Auto) Baso # (Auto) Immature Gran # (Auto) Absolute Nucleated RBC 0.12 H Nucleated RBC % (auto) 3.8 Neutrophils % (Manual) 74 Lymphocytes % (Manual) 24 Basophils % (Manual) 2 Neutrophils # (Manual) 2.33 Total Absolute Neuts 2.33 Lymphocytes # (Manual) 0.76 L Total Abs Lymphocytes 0.76 L Basophils # (Manual) 0.06 Platelet Estimate Polychromasia 1+ Macrocytosis Present Target Cells 1+ Echinocytes 2+ PT INR APTT PTT Ratio Sodium Cancelled Potassium Cancelled Chloride Cancelled Carbon Dioxide Cancelled Anion Gap Cancelled BUN Cancelled Creatinine Cancelled POC Creatinine Est Cr Clr Drug Dosing Cancelled Est GFR ( Amer) Cancelled Est GFR (Non-Af Amer) Cancelled BUN/Creatinine Ratio Cancelled Glucose Cancelled Calcium Cancelled Magnesium Cancelled Total Bilirubin Cancelled Direct Bilirubin Cancelled AST Cancelled ALT Cancelled Alkaline Phosphatase Cancelled Troponin I High Sens 131.3 H* D B-Natriuretic Peptide Total Protein Cancelled Albumin Cancelled Globulin Albumin/Globulin Ratio Tacrolimus SARS-CoV-2, RNA, NAAT Ref Lab Test Result 02/11/22 02/11/22 02/11/22 07:00 07:00 07:50 WBC RBC Hgb Hct MCV MCH MCHC RDW Std Deviation RDW Coeff of Ariane Plt Count MPV Immature Gran % (Auto) Neut % (Auto) Lymph % (Auto) [place] % (Auto) Eos % (Auto) Baso % (Auto) Neut # (Auto) Lymph # (Auto) [place] # (Auto) Eos # (Auto) Baso # (Auto) Immature Gran # (Auto) Absolute Nucleated RBC Nucleated RBC % (auto) Neutrophils % (Manual) Lymphocytes % (Manual) Basophils % (Manual) Neutrophils # (Manual) Total Absolute Neuts Lymphocytes # (Manual) Total Abs Lymphocytes Basophils # (Manual) Platelet Estimate Polychromasia Macrocytosis Target Cells Echinocytes PT INR APTT PTT Ratio Sodium TNP Potassium TNP Chloride TNP Carbon Dioxide TNP Anion Gap TNP BUN TNP Creatinine TNP POC Creatinine 5.1 H* Est Cr Clr Drug Dosing TNP Est GFR ( Amer) TNP Est GFR (Non-Af Amer) TNP BUN/Creatinine Ratio TNP Glucose TNP Calcium TNP Magnesium TNP Total Bilirubin TNP Direct Bilirubin TNP AST TNP ALT TNP Alkaline Phosphatase TNP Troponin I High Sens B-Natriuretic Peptide Total Protein TNP Albumin TNP Globulin Albumin/Globulin Ratio Tacrolimus SARS-CoV-2, RNA, NAAT Ref Lab Test Result Pending
[2022-02-11] MEDS ORDERED: LORazepam 0.25 MG in SYRINGE 0.125 ML IV STA (09:16)
--- NOTE | 2022-02-11 09:52 | Hospitalist Progress Note ---
Date of Service February 11, 2022 Assessment & Plan (1) Status post liver transplantation: Plan: Liver injury secondary to alcoholism with History of liver transplant sometime in 2020 at [facility] He was admitted yesterday with bilateral lower extremity edema and pain with redness Noted to have high LFTs and LIOR-to rule out rejection Tacrolimus level is pending The case was discussed with Dr. Ibrahim at [facility] and the patient was accepted for continuation of care (2) Elevated LFTs: Plan: His total bili was 8.0, AST 279, ALT 202 and alkaline phos 952 as of 02/10/2022 at 1747 hrs. The lab was unable to result any LFTs this morning due to very high bilirubin Appreciate GI input and recommendation Was advised for transfer to transplant center (3) LIOR (acute kidney injury): Plan: His creatinine was noted to be 4.53 at 02/10/2022 at 1747 hrs. Last creatinine documented in this hospital was on 07/04/2021 which was 2.72 Gltic-rb-jnsu creatinine was more than 5 this morning (4) Bilateral cellulitis of lower leg: Plan: Presented with bilateral lower leg swelling with pain and redness Ultrasound did not show any evidence of DVT He has been started with intravenous Dapto and Zosyn (5) Elevated troponin: Plan: Noted to have increasing high-sensitivity troponin at 52.9 on admission and this morning went up to 131.3 Likely secondary to LIOR, doubt any ACS Cardiology was consulted (6) Acute hyponatremia: Plan: History of chronic hyponatremia, noted to be as low as 111 in November of last year On admission the level is 124 (7) Alcohol abuse: Plan: Ongoing use/abuse of alcohol He admitted to take 1 beer 2 days prior to admission Is now having withdrawal symptoms Got 0.5 mg of intravenous Ativan after discussing with Dr. Hernandez at transfer for center DVT prophylaxis His INR is 3.3 and platelet 92 SCDs for now Admission and Anticipated Discharge Date Admission Date: February 10, 2022 Subjective 02/11/2022 Patient was seen and examined in telemetry unit He has been anxious, agitated, tremulous and restless with mild confusions since this morning Has been complaining of some nonspecific back pain but denies any chest pain, any nausea and or vomiting Remains moderately short of breath as well Review of Systems Review of Systems: All systems reviewed & are unremarkable except as noted in Subjective Physical Exam Physical Exam: Sitting on her bed with restlessness Constitutional: well developed, well nourished, + ill appearing and + obese Eyes: sclerae not anicteric (Icteric conjunctiva) ENMT: external ear and nose normal, oropharynx normal Neck: trachea midline, no thyromegaly Respiratory: + respiratory distress (Moderate shortness of breath at rest) Auscultation: lungs clear to auscultation bilaterally and + diminished lung sounds Cardiovascular: Rate/Rhythm: regular rate, regular rhythm and + tachycardic Heart Sounds: normal S1 and normal S2; no murmur Extremities: + edema (1+ edema bilaterally) Gastrointestinal (Abdomen): Inspection/Auscultation: normal bowel sounds; abdo men not distended Percussion/Palpation: + abdomen tender (Minimally tender epigastric) and abdomen soft Musculoskeletal: No acute arthritis in any joint Neurologic: Alert, awake and oriented x3. Tremulous and agitated. Moving all extremities. Tremors involving the outstretched hands. Lymphatic: no cervical or axillary lymphadenopathy Results & Data Results & Data ([facility]) Vital Signs (Past 12 Hours) Vital Signs Temp Pulse Pulse Resp BP BP Pulse Ox 02/11/22 09:08 120 H 18 119/68 98 02/11/22 03:06 36.4 C L 92 H 16 154/73 H 96 02/10/22 23:00 98 H 02/10/22 23:00 02/10/22 22:46 36.5 C 104 H 18 123/55 L 97 02/10/22 22:46 02/10/22 23:13 101 H 96 02/10/22 22:30 36.5 C 104 H 18 123/55 L 97 Pulse Ox O2 Del Method O2 Del Method O2 Flow Rate 02/11/22 09:08 Oxymask 8 02/11/22 03:06 Room Air 02/10/22 23:00 02/10/22 23:00 Room Air 02/10/22 22:46 Room Air 02/10/22 22:46 97 Room Air 02/10/22 23:13 Room Air 02/10/22 22:30 Room Air Laboratory Results Short CBC 02/10/22 02/11/22 Range/Units 17:47 05:44 WBC 3.39 L 3.15 L (4.8-10.8) K/ul Hgb 11.9 L 9.1 L (14.0-18.0) g/dl Hct 33.2 L 24.8 L (40.1-51.0) % Plt Count 92 L 82 L (130-400) K/uL BMP 02/10/22 02/11/22 02/11/22 17:47 05:44 07:00 Sodium 124 L Cancelled TNP Potassium 3.3 L Cancelled TNP Chloride 95 L Cancelled TNP Carbon Dioxide 11 L Cancelled TNP BUN 38 H Cancelled TNP Creatinine 4.53 H* Cancelled TNP Glucose 87 Cancelled TNP Calcium 6.4 L Cancelled TNP Liver Function 02/10/22 02/11/22 02/11/22 Range/Units 17:47 05:44 07:00 Total Bilirubin 8.0 H Cancelled TNP (0.2-1.0) mg/dl Direct Bilirubin Cancelled TNP AST 279 H Cancelled TNP (13-39) U/L ALT 202 H Cancelled TNP (7-52) U/L Alkaline Phosphatase 952 H Cancelled TNP (34-104) U/L Albumin 2.8 L Cancelled TNP (3.4-5.0) gm/dl Medications Administered Current Inpatient Medications Calcium Carbonate (Calcium Carbonate 500 Mg Chewable Tab) 500 mg PO BID PRN PRN Reason: Indigestion Stop: 03/13/22 00:40 Last Admin: 02/11/22 01:08 Dose: 500 mg Folic Acid (Folic Acid 1 Mg Tab) 1 mg PO QAM [facility] Stop: 03/13/22 08:59 Last Admin: 02/11/22 08:29 Dose: 1 mg Hydromorphone HCl (Hydromorphone Inj 0.5 Mg/0.5 Ml Syr) 0.25 mg IV Q3H PRN PRN Reason: Pain Stop: 02/24/22 22:20 Last Admin: 02/11/22 08:40 Dose: 0.25 mg Daptomycin 300 mg/ Syringe 6 mls @ 3 mls/min IV Q48H [facility]; Protocol Stop: 02/17/22 22:59 Last Admin: 02/10/22 23:42 Dose: 3 mls/min Piperacillin Sod/Tazobactam (Sod 3.375 gm/ Dextrose) 115 mls @ 28.75 mls/hr IV Q12H [facility]; Protocol Stop: 02/18/22 07:59 Last Admin: 02/11/22 08:28 Dose: 28.8 mls/hr Lorazepam 0.5 mg/ Syringe 0.5 mls @ 2 mls/min IV Q6H PRN PRN Reason: Anxiety/Agitation Stop: 03/13/22 06:19 Magnesium Oxide (Magnesium Oxide 400 Mg Tab) 400 mg PO BID [facility] Stop: 03/13/22 08:59 Last Admin: 02/11/22 08:29 Dose: 400 mg Methylprednisolone (Methylprednisolone 4 Mg Tab) 4 mg PO QAM [facility] Stop: 03/13/22 08:59 Last Admin: 02/11/22 08:29 Dose: 4 mg Multivitamins/Minerals (Cerovite Adv Formula Tab) 1 tab PO QAM [facility] Stop: 03/13/22 08:59 Last Admin: 02/11/22 08:28 Dose: 1 tab Nifedipine (Nifedipine Extended Rel 30 Mg Tabcr) 30 mg PO HS [facility] Stop: 03/13/22 20:59 Nitroglycerin (Nitroglycerin Sl 0.4 Mg/Tab Tab) 0.4 mg SL UD PRN PRN Reason: Chest Pain Stop: 03/12/22 22:45 Ondansetron HCl (Ondansetron 4 Mg Od Tab) 4 mg PO QID PRN PRN Reason: Nausea Stop: 03/12/22 22:45 Last Admin: 02/11/22 00:26 Dose: 4 mg Pantoprazole Sodium (Pantoprazole 40 Mg Tab) 40 mg PO BID [facility] Stop: 03/13/22 08:59 Last Admin: 02/11/22 08:29 Dose: 40 mg Senna/Docusate Sodium (Docusate Sodium/Senna 50/8.6mg Tab) 2 tab PO DAILY PRN PRN Reason: Constipation Stop: 03/12/22 22:45 Sucralfate (Sucralfate 1 Gm Tab) 1 gm PO BID [facility] Stop: 03/13/22 08:59 Last Admin: 02/11/22 08:29 Dose: 1 gm Thiamine HCl (Thiamine Hcl 100 Mg Tab) 100 mg PO QAM [facility] Stop: 03/13/22 08:59 Last Admin: 02/11/22 08:29 Dose: 100 mg
--- NOTE | 2022-02-11 09:55 | Cardiology Consultation ---
Date of Consultation February 11, 2022 Assessment & Plan (1) Premature atrial complexes: (2) Elevated troponin: (3) LIOR (acute kidney injury): (4) Status post liver transplantation: (5) Elevated LFTs: (6) Pancytopenia: Plan 61-year-old patient presents to the hospital with lower extremity cellulitis and acute renal failure. Lab studies concerning for acute liver failure (hepatorenal syndrome) in the setting of prior liver transplant and ongoing alcohol use. Mildly elevated troponin without ischemic ECG changes. 2D echocardiogram pending. Patient is auto-anticoagulated and pancytopenic. I suspect elevated troponin secondary to acute renal failure in the setting of t achycardia,hypoxia, and anemia. I will review echocardiogram when available. Agree with transfer to tertiary care as recommended by internal medicine. Addendum: Echocardiogram demonstrating preserved LV systolic function on limited views. No significant valvular pathology or pericardial effusion. History of Present Illness Reason for Consultation: Chest pain, ? EKG changes Requesting Physician: Dr. Lemus Attending Physician: Kam Stone MD History of Present Illness 61-year-old patient with a history of liver transplant presented to the emergency department secondary to leg pain. Currently patient is confused possibly withdrawing from alcohol use. Per review of ER records and admission H&P, patient complaining of leg pain and physical exam findings concerning for cellulitis. Lab studies demonstrating acute renal failure with creatinine over 4. Treated in the ER with broad-spectrum antibiotics and gentle hydration. Patient currently confused. Denies chest pain or shortness of breath. No orthopnea, or PND. Telemetry reveals sinus tachycardia with frequent PACs. No history of coronary disease, congestive heart failure, or valvular heart dis ease. 2D echocardiogram pending. Allergies Allergy/AdvReac Type Severity Reaction Status Date / Time sulfamethoxazole Allergy Hives Unverified 07/04/21 08:55 [From Bactrim] trimethoprim [From Bactrim] Allergy Hives Unverified 07/04/21 08:55 Home Medications Medication Instructions Recorded Confirmed Type bmehjscq-mtu-uznrc acid 500 1 tab PO QAM 12/19/20 07/04/21 History mcg-lycopene 300 mcg-lutein 250 mcg tablet ondansetron 4 mg disintegrating 4 mg PO QID PRN Nausea 12/19/20 07/04/21 History tablet thiamine HCl (vitamin B1) 100 mg 100 mg PO QAM 12/19/20 07/04/21 History tablet ergocalciferol (vitamin D2) 1,250 50,000 unit PO WK 07/04/21 07/04/21 History mcg (50,000 unit) capsule (Vitamin D2) folic acid 1 mg tablet 1 mcg PO QAM 07/04/21 07/04/21 History magnesium oxide 400 mg (241.3 mg 400 mg PO BID 07/04/21 07/04/21 History magnesium) tablet methylprednisolone 4 mg tablet 4 mg PO QAM 07/04/21 07/04/21 History mycophenolate sodium 180 mg 360 mg PO BID 07/04/21 07/04/21 History tablet,delayed release nifedipine 30 mg tablet,extended 30 mg PO HS 07/04/21 07/04/21 History release 24 hr pantoprazole 40 mg tablet,delayed 40 mg PO BID 07/04/21 07/04/21 History release sennosides 8.6 mg-docusate sodium 2 tab PO DAILY PRN Constipation 07/04/21 07/04/21 History 50 mg tablet (Stimulant Laxative Plus) sucralfate 1 gram tablet 1 g PO BID 07/04/21 07/04/21 History tacrolimus 1 mg capsule, 1 mg PO BID 07/04/21 07/04/21 History immediate-release tacrolimus 5 mg capsule, 5 mg PO BID 07/04/21 07/04/21 History immediate-release Patient History Social History Smoking Status: Never smoker Second Hand Exposure: Yes; Hx Alcohol Use: Yes Alcohol type: beer Hx Substance Use: No Preferred Language: [place]ese Communication Ability: Impaired Dumpling Machine Operator Required: No Beliefs That Will Affect Care: Mormon Current Living Situation: Alone Current Living Situation Comment: house Feels Safe at Home: Yes Assistive Devices: Cane Review of Systems Review of Systems: Unobtainable due to cognitive status Physical Exam Constitutional: well nourished and + ill appearing Eyes: sclerae not anicteric Respiratory: normal respiratory effort; no respiratory distress Auscultation: no crackles, no rales, no rhonchi and no wheezes Cardiovascular: Rate/Rhythm: + tachycardic and + irregularly irregular Heart Sounds: normal S1 and normal S2; no murmur Vessels: no carotid bruit Extremities: + edema (2+ bilateral pretibial edema with stasis changes, left low er extremity eryt) Gastrointestinal (Abdomen): + Jaundice Results & Data ([facility]) Vital Signs (Past 12 Hours) Vital Signs Temp Pulse Pulse Resp BP BP Pulse Ox 02/11/22 09:08 120 H 18 119/68 98 02/11/22 03:06 36.4 C L 92 H 16 154/73 H 96 02/10/22 23:00 98 H 02/10/22 23:00 02/10/22 22:46 36.5 C 104 H 18 123/55 L 97 02/10/22 22:46 02/10/22 23:13 101 H 96 02/10/22 22:30 36.5 C 104 H 18 123/55 L 97 Pulse Ox O2 Del Method O2 Del Method O2 Flow Rate 02/11/22 09:08 Oxymask 8 02/11/22 03:06 Room Air 02/10/22 23:00 02/10/22 23:00 Room Air 02/10/22 22:46 Room Air 02/10/22 22:46 97 Room Air 02/10/22 23:13 Room Air 02/10/22 22:30 Room Air
--- NOTE | 2022-02-11 10:00 | Discharge Summary ---
Date of Service February 11, 2022 Admission HPI Per Admitting Provider DICTATED BY:Deven Lemus MD DATE OF ADMISSION: 02/10/2022. CHIEF COMPLAINT: Lower extremity edema and pain. HISTORY OF PRESENT ILLNESS: A 61-year-old male with past medical history significant for familial Mediterranean fever, history of alcoholism, chronic hypervolemic hyponatremia, history of acute liver injury secondary to alcoholism, status post transplant in 2020 at [facility], presents with worsening lower extremity edema. The patient says since last 1 week, he is getting worsening lower extremity edema, erythema and pain. He was able to ambulate with a cane, but in the last few days, he is not able to ambulate. He lives alone. His sisters lives close by. His appetite is down. He has a lot of nausea and not able to eat much. Had some low-grade fever at home. Normal bowel and bladder movements. Denies abdominal pain, no back pain. He states he also has some mild chest discomfort in the last few days. Denies any shortness of breath, no cough, no headache. His vision is not that great. No earache, no runny nose. He has some sore throat, no difficulty swallowing. Currently, resting comfortably and hemodynamically stable. Admission Exam Per Admitting Provider GENERAL: The patient is of moderate build, not in acute distress. VITAL SIGNS: Temperature 36.9, pulse 96, respiratory rate 16, blood pressure 128/78, oxygen 95% on room air. HEENT: Icterus present. Pupils equal, round and reactive to light. Oral mucosa moist. NECK: No JVD, no neck masses. CARDIOVASCULAR: S1 and S2 heard. Regular rate and rhythm. No murmur, no gallop. RESPIRATORY SYSTEM: Normal AP diameter. No accessory muscle use. No wheezing, no crackles. ABDOMEN: Soft, bowel sounds present, nontender, no distention. CENTRAL NERVOUS SYSTEM: Alert and oriented. No facial droop. Speech is clear. Insight is okay. Obeys simple commands. Moves extremities. EXTREMITIES: Bilateral lower extremity gross edema with erythematous changes up to the knee with tenderness on palpation and weeping. Principal Diagnosis Status post liver transplant to rule out rejection, abnormal LFTs , LIOR, alcohol withdrawal Discharge Exam Sitting on her bed with restlessness Constitutional well developed, well nourished, + ill appearing and + obese Eyes sclerae not anicteric (Icteric conjunctiva) ENMT external ear and nose normal, oropharynx normal Neck trachea midline, no thyromegaly Respiratory + respiratory distress (Moderate shortness of breath at rest) Auscultation: lungs clear to auscultation bilaterally and + diminished lung sounds Cardiovascular Rate/Rhythm: regular rate, regular rhythm and + tachycardic Heart Sounds: normal S1 and normal S2; no murmur Extremities: + edema (1+ edema bilaterally) Gastrointestinal (Abdomen) Inspection/Auscultation: normal bowel sounds; abdomen not distended Percussion/Palpation: + abdomen tender (Minimally tender epigastric) and abdomen soft Lymphatic no cervical or axillary lymphadenopathy Discharge Data Allergies Allergy/AdvReac Type Severity Reaction Status Date / Time sulfamethoxazole Allergy Hives Unverified 07/04/21 08:55 [From Bactrim] trimethoprim [From Bactrim] Allergy Hives Unverified 07/04/21 08:55 Consultations 02/10/22 20:36 ED Decision to Admit Stat 02/11/22 06:13 Consult Cardiology Routine 02/11/22 08:00 Consult Gastroenterology Routine Consult Nephrology Routine Ordered Studies 02/10/22 17:58 US venous doppler LE BI Urgent 02/10/22 22:46 CT leg [CT tib/fib LT wo con] Urgent CT leg [CT tib/fib RT wo con] Urgent 02/11/22 09:15 US RUQ [US liver] Stat 02/11/22 09:16 US portal veins doppler [US duplex portal hepatic veins] Stat Hospital Course (1) Status post liver transplantation: Liver injury secondary to alcoholism with History of liver transplant sometime in 2020 at [facility] He was admitted yesterday with bilateral lower extremity edema and pain with redness Noted to have high LFTs and LIOR-to rule out rejection Tacrolimus level is pending The case was discussed with Dr. Ibrahim at [facility] and the patient was accepted for continuation of care (2) Elevated LFTs: His total bili was 8.0, AST 279, ALT 202 and alkaline phos 952 as of 02/10/2022 at 1747 hrs. The lab was unable to result any LFTs this morning due to very high bilirubin Appreciate GI input and recommendation Was advised for transfer to transplant center (3) LIOR (acute kidney injury): His creatinine was noted to be 4.53 at 02/10/2022 at 1747 hrs. Last creatinine documented in this hospital was on 07/04/2021 which was 2.72 [id number]-eh-rkjn creatinine was more than 5 this morning (4) Bilateral cellulitis of lower leg: Presented with bilateral lower leg swelling with pain and redness Ultrasound did not show any evidence of DVT He has been started with intravenous Dapto and Zosyn (5) Elevated troponin: Noted to have increasing high-sensitivity troponin at 52.9 on admission and this morning went up to 131.3 Likely secondary to LIOR, doubt any [facility] Cardiology was consulted (6) Acute hyponatremia: History of chronic hyponatremia, noted to be as low as 111 in November of last year On admission the level is 124 (7) Alcohol abuse: Ongoing use/abuse of alcohol He admitted to take 1 beer 2 days prior to admission Is now having withdrawal symptoms Got 0.5 mg of intravenous Ativan after discussing with Dr. Hernandez at transfer for center DVT prophylaxis His INR is 3.3 and platelet 92 SCDs for now Total Time Total Time Spent Total Time Spent (In Minutes): 45 minutes Discharge Plan Discharge Items Patient Disposition: Transfer Acute Care Hospital Reason For Visit: LEG PAIN, SWELLING Discharge Diagnosis: Status post liver transplant to rule out rejection, abnormal LFTs , LIOR, alcohol withdrawal Condition on Discharge: Serious Activity: As commented below Activity Comment: Will be transferred to [facility] Non-emergency contact: Primary Care Provider Call non-emergency contact if: you have any medication questions and your sym ptoms worsen Follow-up/Referrals: PCP,NO [Primary Care Provider] - (Please make an appointment with your PCP within 7 days following discharge from the facility) Diet: Heart Healthy Addtl Attending Provider Instructions: He will be transferred to transplant center at [facility] for continuation of care All of his inpatient medications were continued on transfer as follows: Current Inpatient Medications Calcium Carbonate (Calcium Carbonate 500 Mg Chewable Tab) 500 mg PO BID PRN PRN Reason: Indigestion Stop: 03/13/22 00:40 Last Admin: 02/11/22 01:08 Dose: 500 mg Folic Acid (Folic Acid 1 Mg Tab) 1 mg PO QAM SAMUEL Stop: 03/13/22 08:59 Last Admin: 02/11/22 08:29 Dose: 1 mg Hydromorphone HCl (Hydromorphone Inj 0.5 Mg/0.5 Ml Syr) 0.25 mg IV Q3H PRN PRN Reason: Pain Stop: 02/24/22 22:20 Last Admin: 02/11/22 08:40 Dose: 0.25 mg Daptomycin 300 mg/ Syringe 6 mls @ 3 mls/min IV Q48H [facility]; Protocol Stop: 02/17/22 22:59 Last Admin: 02/10/22 23:42 Dose: 3 mls/min Piperacillin Sod/Tazobactam (Sod 3.375 gm/ Dextrose) 115 mls @ 28.75 mls/hr IV Q12H [facility]; Protocol Stop: 02/18/22 07:59 Last Admin: 02/11/22 08:28 Dose: 28.8 mls/hr Lorazepam 0.5 mg/ Syringe 0.5 mls @ 2 mls/min IV Q6H PRN PRN Reason: Anxiety/Agitation Stop: 03/13/22 06:19 Magnesium Oxide (Magnesium Oxide 400 Mg Tab) 400 mg PO BID [facility] Stop: 03/13/22 08:59 Last Admin: 02/11/22 08:29 Dose: 400 mg Methylprednisolone (Methylprednisolone 4 Mg Tab) 4 mg PO QAM [facility] Stop: 03/13/22 08:59 Last Admin: 02/11/22 08:29 Dose: 4 mg Multivitamins/Minerals (Cerovite Adv Formula Tab) 1 tab PO QAM [facility] Stop: 03/13/22 08:59 Last Admin: 02/11/22 08:28 Dose: 1 tab Nifedipine (Nifedipine Extended Rel 30 Mg Tabcr) 30 mg PO HS [facility] Stop: 03/13/22 20:59 Nitroglycerin (Nitroglycerin Sl 0.4 Mg/Tab Tab) 0.4 mg SL UD PRN PRN Reason: Chest Pain Stop: 03/12/22 22:45 Ondansetron HCl (Ondansetron 4 Mg Od Tab) 4 mg PO QID PRN PRN Reason: Nausea Stop: 03/12/22 22:45 Last Admin: 02/11/22 00:26 Dose: 4 mg Pantoprazole Sodium (Pantoprazole 40 Mg Tab) 40 mg PO BID [facility] Stop: 03/13/22 08:59 Last Admin: 02/11/22 08:29 Dose: 40 mg Senna/Docusate Sodium (Docusate Sodium/Senna 50/8.6mg Tab) 2 tab PO DAILY PRN PRN Reason: Constipation Stop: 03/12/22 22:45 Sucralfate (Sucralfate 1 Gm Tab) 1 gm PO BID SAMUEL Stop: 03/13/22 08:59 Last Admin: 02/11/22 08:29 Dose: 1 gm Thiamine HCl (Thiamine Hcl 100 Mg Tab) 100 mg PO QAM SAMUEL Stop: 03/13/22 08:59 Last Admin: 02/11/22 08:29 Dose: 100 mg Pending Studies at Discharge: No Stand-Alone Forms: [facility] Skilled Items Patient informed of condition?: Yes DNR: No Discharge Level of Care: Other Communicable Disease: No Discharge Prognosis: Stable Lines: None Urinary Catheter: No Medications and DC Order Prescriptions: Continued thiamine HCl (vitamin B1) 100 mg Tablet 100 mg PO QAM ondansetron 4 mg Tablet,Disintegrating 4 mg PO QID PRN (Reason: Nausea) Complete Multi 50+ 500-300-250 mcg Tablet 1 tab PO QAM nifedipine 30 mg tablet extended release 24 hr 30 mg PO HS sucralfate 1 gram tablet 1 g PO BID tacrolimus 5 mg capsule 5 mg PO BID sennosides-docusate sodium [Stimulant Laxative Plus] 8.6-50 mg tablet 2 tab PO DAILY PRN (Reason: Constipation) methylprednisolone 4 mg tablet 4 mg PO QAM magnesium oxide 400 mg (241.3 mg magnesium) tablet 400 mg PO BID pantoprazole 40 mg tablet,delayed release (DR/EC) 40 mg PO BID folic acid 1 mg tablet 1 mcg PO QAM ergocalciferol (vitamin D2) [Vitamin D2] 1,250 mcg (50,000 unit) capsule 50,000 unit PO WK Rx Instructions: Saturday at 8am tacrolimus 1 mg capsule 1 mg PO BID mycophenolate sodium 180 mg tablet,delayed release (DR/EC) 360 mg PO BID Discharge Orders: Discharge Order (Routine); Ordered 02/11/22 Ordered By: Kam Stone Admission Data Admit Date/Time: 02/10/22 21:28 Attending Provider: Kam Stone Admit Provider: Kam Stone Primary Care Provider: PCP,NO Other Providers: Deven Lemus ; Mae Decker ; Jayy Agrawal ; Randy Cohn
[2022-02-11] MEDS ORDERED: LORazepam 1 MG TAB SL STA (10:28)
--- NOTE | 2022-02-11 12:30 | Electrocardiogram Report ---
Test Reason : Blood Pressure : / mmHG Vent. Rate : 095 BPM Atrial Rate : 095 BPM P-R Int : 162 ms QRS Dur : 110 ms QT Int : 398 ms P-R-T Axes : 005 -49 054 degrees QTc Int : 500 ms Sinus rhythm with Premature atrial complexes Left anterior fascicular block Septal infarct (cited on or before 04-JUL-2021) Prolonged QT Abnormal ECG When compared with ECG of 04-JUL-2021 06:24, Nonspecific T wave abnormality no longer evident in Inferior leads Nonspecific T wave abnormality no longer evident in Anterior leads Confirmed by Willis Trejo ([id number]) on 02/11/2022 12:30:35 PM Referred By: REFERRED SELF Confirmed By:Willis Trejo
--- NOTE | 2022-02-11 12:56 | Electrocardiogram Report ---
Test Reason : Blood Pressure : / mmHG Vent. Rate : 113 BPM Atrial Rate : 113 BPM P-R Int : 158 ms QRS Dur : 118 ms QT Int : 376 ms P-R-T Axes : -01 -43 070 degrees QTc Int : 515 ms Sinus tachycardia Left axis deviation Incomplete left bundle block Abnormal ECG When compared with ECG of 10-FEB-2022 16:58, (unconfirmed) Premature atrial complexes are no longer Present Confirmed by Willis Trejo ([id number]) on 02/11/2022 12:56:17 PM Referred By: REFERRED SELF Confirmed By:Willis Trejo
[2022-02-11] MEDS ORDERED: SODIUM CHLORIDE 0.9% 1000ML 1,000 ML IV SCH (15:45)
[2022-02-11] MEDS ORDERED: RAPID SEQUENCE INDUCTION BAG ONE ×2 (20:29→20:43)
[2022-02-11] MEDS ORDERED: NIFEdipine EXTENDED REL 30 MG TABCR PO SCH (21:00)
--- NOTE | 2022-02-11 21:31 | Anesthesia Procedure Note ---
Anesthesia Procedure Note Intubation Note Vital Signs: intubated during cardiac arrest Date of procedure: 02/11/22 Indication for intubation: Cardiac arrest Consent: Risk / Benefits Reviewed With: Emergency Premedication: None Paralytic medication: None Intubation technique: Easy mask and Two-hand mask (during cardiac arrest) Equipment: Glidescope and Fiberoptic (nasal) View: Grade 2 Endotracheal tube: Nasal and Other (6.0 cuff) Attempts: Multiple Tube placement confirmation: auscultation and Positive CO2 detection Procedure Summary: Called for failure to intubate during cardiac arrest. ER physician and code team at bedside. Given rocx2 with ongoing trismus, unable to open mouth. Multiple broken teeth noted on arrival. FOB glidescope at bedside. Able to pass 6.0 cuff ETT nasally on second pass with FOB. Up cuff +ETCO2, BLBSE at 25cm. taped by respiratory. Dismissed from on going code efforts. Post-procedure: Post placement CXR ordered (by primary team)
[2022-02-11] MEDS ORDERED: Standard 16mcg/mL; 4 MG in 250 mL for HYPOTENSION IV SCH (21:45)
[2022-02-11] MEDS ORDERED: EPINEPHrine/NSS 4 MG/254 ML BAG IV SCH (21:45)
[2022-02-11] MEDS ORDERED: ICU PROTOCOL FOR HYPERGLYCEMIA PRN (21:47)
[2022-02-11 21:56] LABS: iSTAT Arterial Blood Gas HCO3 9 meg/L (19-24); iSTAT Arterial Blood Gas pCO2 24 mmHg (35-46); iSTAT Arterial Blood Gas pH 7.16 (7.35-7.45); iSTAT Arterial Blood Gas pO2 414 mmHg (80-95); iSTAT Carbon Dioxide 9 mmol/L (24-31); iSTAT FiO2 100 %; iSTAT Site Art Line
[2022-02-11] MEDS ORDERED: SODIUM BICARB 8.4% INJ 50 MEQ/50 ML SYR IV ONE ×3 (21:56→22:16)
[2022-02-11 21:59] LABS: Hematocrit (blood only) 21.3 % (40.1-51.0); Hemoglobin 7.1 g/dl (14.0-18.0); Mean Corpuscular Hemoglobin 32.6 pg (25.0-34.0); Mean Corpuscular Hgb Conc 33.3 g/dL (32.0-36.0); Mean Corpuscular Volume 97.7 fL (80.0-100.0); Mean Platelet Volume 10.1 fL (9.4-12.4); Nucleated RBC # (auto) 0.24 K/uL (0-0); Nucleated RBC % (auto) 11.1 %; Platelet Count 66 K/uL (130-400); RDW Coefficient of Variation 17.9 % (11.5-14.5); Red Blood Count 2.18 M/uL (4.63-6.08); White Blood Count 2.17 K/ul (4.8-10.8)
[2022-02-11] MEDS ORDERED: PHYTONADIONE 10 MG in DEXTROSE 5% 50 ML IV ONE (22:00)
[2022-02-11] MEDS ORDERED: MIDAZOLAM HCL 5 MG/ML 1 ML VIAL IV PRN (22:04)
[2022-02-11] MEDS ORDERED: PHENobarbital sodium 130 MG/ML VIAL ONE (22:08)
[2022-02-11] MEDS ORDERED: PHENobarbitaL sodium 130 MG in SYRINGE 0 ML IV ONE (22:09)
[2022-02-11] MEDS ORDERED: STAT IV STA (22:11)
[2022-02-11] MEDS ORDERED: PHENobarbital sodium 130 MG/ML VIAL IV ONE (22:15)
[2022-02-11] MEDS ORDERED: SODIUM BICARBONATE 8.4% 150 MEQ in DEXTROSE 5% 1,000 ML IV SCH (22:15)
[2022-02-11] MEDS ORDERED: ROCURONIUM BROMIDE 10 MG/ML 5 ML VIAL IV ONE (22:16)
[2022-02-11] MEDS ORDERED: SODIUM CHLORIDE 0.9% 10ML FLUSH IV ONE (22:16)
[2022-02-11 22:30] LABS: Hematocrit (blood only) 13.6 % (40.1-51.0); Hemoglobin 4.9 g/dl (14.0-18.0)
[2022-02-11 22:31] LABS: Mean Corpuscular Hemoglobin 32.2 pg (25.0-34.0); Mean Corpuscular Volume 89.5 fL (80.0-100.0); Mean Platelet Volume 11.7 fL (9.4-12.4); Nucleated RBC # (auto) 0.18 K/uL (0-0); Nucleated RBC % (auto) 11.4 %; Platelet Count 54 K/uL (130-400); RDW Coefficient of Variation 17.1 % (11.5-14.5); RDW Standard Deviation 55.8 fL (36.4-46.3); Red Blood Count 1.52 M/uL (4.63-6.08); White Blood Count 1.58 K/ul (4.8-10.8)
[2022-02-11 22:34] LABS: Eosinophils % (auto) 12.7 %; Immature Granulocytes # (auto) 0.04 K/uL (0.00-0.02); Immature Granulocytes % (auto) 2.5 %; Lymphocytes # (auto) 0.64 K/uL (1.2-3.4); Lymphocytes % (auto) 40.5 %; Monocytes # (auto) 0.07 K/uL (0.24-0.82); Monocytes % (auto) 4.4 %; Neutrophils # (auto) 0.63 K/uL (1.4-6.5); Neutrophils % (auto) 39.9 %
[2022-02-11 22:42] LABS: ALC (manual) 0.59 K/uL (1.2-3.4); Echinocytes 1+; Lymphocytes # (manual) 0.59 K/uL (1.2-3.4); Lymphocytes % (manual) 27 %; Metamyelocytes # (manual) 0.04 K/uL (0-0); Metamyelocytes % (manual) 2 %; Monocytes # (manual) 0.02 K/uL (0.24-0.82); Monocytes % (manual) 1 %; Myelocytes # (manual) 0.02 K/uL (0-0); Myelocytes % (manual) 1 %; Neutrophils % (manual) 69 %; Polychromasia 1+; Toxic Vacuolation 1+
--- NOTE | 2022-02-11 22:53 | Procedure Note ---
Procedure Note Date of Service February 11, 2022 Note Cardiac Arrest: Responded to code blue in patient's room on the weldon. CPR was in process and patient was connected to the defibrillator on arrival. PEA was noted on response. Limited history was obtained from RN and Medicine attending. See Cardiac Arrest record. Patient was brought back with perfusable rythm, moved to head of bed for intubation. Patient jaws clenched and unable to open, he was not spontaneously breathing and was continued to be supported with 2 man bag valve mask. Request was made for 5mg Versed which was administered with no relaxation of jaw. Continue to provide BVM ventilation with placement of Na sapharyngeal Airway- with no response from patient, rise and fall of the chest was noted as well as auscultation of lung sounds bilaterally. Patient was then given Rocuronium IO and was flushed through with two flushes. Attempt was made to open jaw again and without success, repeat dose of Rocuronium was administered and again without relaxation of jaw. Patient was returned to bag valve ventilation and remained with pulse. At this time I turned airway support over to Dr. Aguirre from the [facility] and I turned my attention to vascular access, and patient continued to be supported with BVM. Patient continued to go in and out of PEA and asystole, and was resuscitated multiple times. IM Physician Dr. Lemus updated family via phone. Anesthesia was called for attempt at nasal intubation. See attached note. Patient was resuscitated again with return of pulse. Airway was eventually secured, following another loss of pulse and bradycardia CPR was started again and return of pulse following epinephrine and HCO3 push after 2 min of CPR. Patient remained stabilized for transfer to ICU. He was placed on ventilator required 2 more doses of epinephrine IV as well as another NA HCO3 push to maintain hemodynamics. He was then started on a Epinephrine drip. Dr. More ICU attending was met in the ICU and continued resuscitation and attempting to break his presumed seizure were also not successful. Family did arrive and he declined again on full support. Care was terminated and patient with family at bedside. Coding CPT Codes Resuscitation - Resuscitation: 81496 Heart/lung resuscitation CPR ([id number]) [facility] Procedure Codes (Charges) Resuscitation Resuscitation: [id number] Heart/lung resuscitation CPR
--- NOTE | 2022-02-11 23:03 | Procedure Note ---
Procedure Note Date of Service February 11, 2022 Note ARTERIAL LINE PROCEDURE NOTE: Procedure: Arterial Line Placement Attending: Dr. Ziegler APC: Mauricio Olson Indication: Monitoring on Pressors Anesthesia: [x]None Emergent line placement during cardiac arrest Patients right groin was selected for emergent placement of access. The artery was palpated and entered, pulsatile blood was noted and the wire was advanced easily. haven was made with scalpel and the arterial catheter was advanced. Blood was drawn and capped until able to get to ICU where it was eventually connected to pressure line and adequate waveform visualized. Attempts were made at venous access but unable to maintain flow or access the vein with landmark approach. Blood Loss: 20 ml for blood draw and 10-15 ml with oozing Complications: None Procedure Date: Indication: Emergency Cardiac Arrest Attending: Dr. Ziegler Artery Identified: YES Complications: NONE immediately noted Coding CPT Codes Tubes, Drains, and Vasc Access - Tubes, Drains, and Vasc Access: [id number] Insertion Catheter, Artery ([id number]) [facility] [place] Procedure Codes (Charges) Tubes, Drains, and Vasc Access Procedure 1: Tubes, Drains, and Vasc Access: [id number] Insertion Catheter, Artery
--- NOTE | 2022-02-11 23:05 | Critical Care Consultation ---
Date of Consultation February 11, 2022 Assessment & Plan (1) Cardiac arrest: Patient at 2200 (2) Status epilepticus: See HPI and additional code sheets for resuscitation details (3) Pancytopenia: (4) Alcohol abuse: (5) Status post liver transplantation: (6) LIOR (acute kidney injury): (7) Elevated LFTs: (8) Acute hyponatremia: (9) Electrolyte abnormality: Supervising Physician Co-Signing Physician Notes I have personally spent 35 minutes of critical care time in the direct management of this patient. This is a life/limb threatening event. This includes time spent evaluating patient, direct bedside care, chart review, placing orders, interpretation of diagnostic studies, discussion with consultants, patient, and/or family members regarding treatment decisions, as well as other required patient management activities. This time is exclusive of all separately billable procedures, and teaching time and separate from and in addition to any other critical care service time. History of Present Illness Reason for Consultation: CODE BLUE with return of spontaneous circulation Attending Physician: Kam Stone MD History of Present Illness Briefly patient is a 61-year-old male with a past medical history of liver transplant (2020 at [facility]) secondary to acute liver failure secondary to alcoholic hepatitis. He was admitted on February 10, 2022 with acute kidney failure: Probable hepatorenal syndrome, bilateral lower extremity edema with possible cellulitis, ongoing alcoholism: Drinking 2 beers daily (no reported seizure history per prior records) with coagulopathy: INR 3.3 and thrombocyto penia: Platelets 92, who as reported by hospital staff was found to be unresponsive in ventricular fibrillation. CPR was started and advanced airway techniques were attempted. Patient was given 2 doses of rocuronium which did not lead to adequate skeletal muscle relaxation and anesthesia was consulted emergently for nasotracheal fiberoptic intubation. By report patient had approximately 1 hour of ongoing resuscitative efforts. Upon my arrival at bedside patient was on 0.5 mcg/kg of epinephrine and barely able to sustain a systolic blood pressure of 50 mmHg. He was given 4 A of bicarb which did improve his systolic blood pressure. This was given through an interosseous line hence the significant dosing. During my evaluation the patient's jaw was still severely clenched and the patient was rigid I feel that the patient was in status epilepticus. We administered 10 mg of Versed as well as 130 mg of phenobarbital IV. Please refer to code documentation for further details. Review of the chart and the extended resuscitation as well as the apparent ongoing status epilepticus and supraphysiologic medications required to sustain the patient when family arrived at bedside given the extremely poor prognosis the decision was made to terminate heroic measures. Even at that time the patient was having significant periods of asystole. All medications were stopped and the patient was disconnected from the ventilator. Time of was 2200 on February 11, 2022. Family was present at the bedside. As the patient in less than 24 hours from hospital admission this will be referred for a manager regional's case. Allergies Allergy/AdvReac Type Severity Reaction Status Date / Time sulfamethoxazole Allergy Hives Unverified 07/04/21 08:55 [From Bactrim] trimethoprim [From Bactrim] Allergy Hives Unverified 07/04/21 08:55 Home Medications Medication Instructions Recorded Confirmed Type yubpxkqo-gfi-iqeiz acid 500 1 tab PO QAM 12/19/20 07/04/21 History mcg-lycopene 300 mcg-lutein 250 mcg tablet ondansetron 4 mg disintegrating 4 mg PO QID PRN Nausea 12/19/20 07/04/21 History tablet thiamine HCl (vitamin B1) 100 mg 100 mg PO QAM 12/19/20 07/04/21 History tablet ergocalciferol (vitamin D2) 1,250 50,000 unit PO WK 07/04/21 07/04/21 History mcg (50,000 unit) capsule (Vitamin D2) folic acid 1 mg tablet 1 mcg PO QAM 07/04/21 07/04/21 History magnesium oxide 400 mg (241.3 mg 400 mg PO BID 07/04/21 07/04/21 History magnesium) tablet methylprednisolone 4 mg tablet 4 mg PO QAM 07/04/21 07/04/21 History mycophenolate sodium 180 mg 360 mg PO BID 07/04/21 07/04/21 History tablet,delayed release nifedipine 30 mg tablet,extended 30 mg PO HS 07/04/21 07/04/21 History release 24 hr pantoprazole 40 mg tablet,delayed 40 mg PO BID 07/04/21 07/04/21 History release sennosides 8.6 mg-docusate sodium 2 tab PO DAILY PRN Constipation 07/04/21 07/04/21 History 50 mg tablet (Stimulant Laxative Plus) sucralfate 1 gram tablet 1 g PO BID 07/04/21 07/04/21 History tacrolimus 1 mg capsule, 1 mg PO BID 07/04/21 07/04/21 History immediate-release tacrolimus 5 mg capsule, 5 mg PO BID 07/04/21 07/04/21 History immediate-release Patient History Social History Smoking Status: Never smoker Second Hand Exposure: Yes; Do You Dip or Chew Tobacco: No; Tobacco Cessation Education Requested by Patient: No Hx Alcohol Use: Yes Alcohol type: beer Hx Substance Use: No Preferred Language: Romansh Communication Ability: Impaired Talent Recruiter Required: No Beliefs That Will Affect Care: Mandaeism Current Living Situation: Alone Current Living Situation Comment: house Other Information That Helps Us Care for You: Yes (sister yesterday) Feels Safe at Home: Yes Safety Concerns: Feels Safe At This Time Assistive Devices: Cane Review of Systems Review of Systems: Unobtainable due to endotracheal tube Physical Exam Physical Exam: General: Unresponsive: GCS 3 T. Skin: Cool, multiple ecchymotic areas. Head: Atraumatic Ears, nose, mouth and throat: Nasotracheal tube present in naris Cardiovascular: Significant hypoperfusion with acrocyanosis of all extremities Respiratory: Ventilator settings reviewed Gastrointestinal: Abdominal scar consistent with liver transplant Musculoskeletal: 3+ lower extremity edema Results & Data Results & Data ([facility]) Vital Signs (Past 12 Hours) Vital Signs Pulse Resp O2 Del Method O2 Flow Rate FiO2 02/11/22 22:10 92 H 25 H 50 02/11/22 21:30 87 24 100 02/11/22 20:10 Ambu-Bag 15 02/11/22 16:13 103 H Critical Care Results & Data Vital Signs (Past 12 Hours) Vital Signs Pulse Resp O2 Del Method O2 Flow Rate FiO2 02/11/22 22:10 92 H 25 H 50 02/11/22 21:30 87 24 100 02/11/22 20:10 Ambu-Bag 15 02/11/22 16:13 103 H Lab & Micro Results (Past 24 Hours) RBC 1.52 M/uL (4.63-6.08) L 02/11/22 WBC 1.58 K/ul (4.8-10.8) L 02/11/22 Hgb 4.9 g/dl (14.0-18.0) L* 02/11/22 Hct 13.6 % (40.1-51.0) L* 02/11/22 MCV 89.5 fL (80.0-100.0) 02/11/22 MCH 32.2 pg (25.0-34.0) 02/11/22 MCHC 36.0 g/dL (32.0-36.0) 02/11/22 RDW Standard Deviation 55.8 fL (36.4-46.3) H 02/11/22 RDW Coefficient of Variation 17.1 % (11.5-14.5) H 02/11/22 Plt Count 54 K/uL (130-400) L 02/11/22 MPV 11.7 fL (9.4-12.4) 02/11/22 Nucleated Red Blood Cells % (auto) 11.4 % 02/11 Nucleated RBC Absolute Count (auto) 0.18 K/uL (0-0) H 01/25 01/15 Neutrophils (%) (Auto) 39.9 % 02/11/22 Lymphocytes (%) (Auto) 40.5 % 02/11/22 Monocytes # (Auto) 0.07 K/uL (0.24-0.82) L 02/11/22 Eosinophils # (Auto) 0.20 K/uL (0-0.50) 02/11/22 Immature Granulocyte % (Auto) 2.5 % 02/11/22 Neutrophils # (Auto) 0.63 K/uL (1.4-6.5) L* 02/11/22 Lymphocytes # (Auto) 0.64 K/uL (1.2-3.4) L 02/11/22 Monocytes # (Auto) 0.07 K/uL (0.24-0.82) L 02/11/22 Eosinophils # (Auto) 0.20 K/uL (0-0.50) 02/11/22 Basophils # (Auto) 0.00 K/uL (0-0.2) 02/11/22 Immature Granulocyte # (Auto) 0.04 K/uL (0.00-0.02) H 02/11 ANC 1.50 K/uL (1.4-6.5) 02/11/22 ALC 0.59 K/uL (1.2-3.4) L 02/11/22 Neutrophils % (Manual) 69 % 02/11/22 Lymphocytes % (Manual) 27 % 02/11/22 Monocytes % (Manual) 1 % 02/11/22 Basophils % (Manual) 2 % 02/11/22 Metamyelocytes % (manual) 2 % 02/11/22 Myelocytes % (Manual) 1 % 02/11/22 Neutrophils # (Manual) 1.50 K/uL (1.4-6.5) 02/11/22 Lymphocytes # (Manual) 0.59 K/uL (1.2-3.4) L 02/11/22 Monocytes # (Manual) 0.02 K/uL (0.24-0.82) L 02/11/22 Basophils # (Manual) 0.06 K/uL (0-0.2) 02/11/22 Metamyelocytes # (Manual) 0.04 K/uL (0-0) H 02/11/22 Myelocytes # (Manual) 0.02 K/uL (0-0) H 02/11/22 Polychromasia 1+ 02/11/22 Echinocytes 1+ 02/11/22 Macrocytosis Present 02/11/22 Target Cells 1+ 02/11/22 Toxic Vacuolation 1+ 02/11/22 Na TNP 02/11/22 K TNP 02/11/22 Cl TNP 02/11/22 CO2 TNP 02/11/22 Anion Gap TNP 02/11/22 BUN TNP 02/11/22 Creatinine TNP 02/11/22 Estimated GFR ( Amer) TNP 02/11/22 Estimated GFR (Non-Af Amer) TNP 02/11/22 BUN/Creatinine Ratio TNP 02/11/22 Glu TNP 02/11/22 Ca TNP 02/11/22 Total Bilirubin TNP 02/11/22 Direct Bilirubin TNP 02/11/22 AST TNP 02/11/22 ALT TNP 02/11/22 Alkaline Phosphatase TNP 02/11/22 TP TNP 02/11/22 Albumin TNP 02/11/22 Mg TNP 02/11/22 07:00 Calcium Level TNP 02/11/22 07:00 Gokul Test NA 02/11/22 21:40 Diagnostic Findings (Past 24 Hours) Venous Doppler Study 02/10/22 17:58 BILATERAL LOWER EXTREMITY VENOUS DOPPLER HISTORY: leg swelling COMPARISON STUDY: None. FINDINGS: There is normal compressibility, flow, and augmentation within the bilateral lower extremity deep venous systems. The right posterior tibial vein was not visualized due to the subcutaneous edema/swelling. IMPRESSION: No DVT within the visualized right or left lower extremity. ACT 112: Negative or not required by law. Electronically signed by: Braxton Rider M.D. 02/11/2022 6:05 AM I & O Totals 24 Hours 02/10/22 02/11/22 02/12/22 06:59 06:59 06:59 Intake Total 962.083 / 962.083 115 / 115 Output Total 0 / 0 Balance 962.083 / 962.083 115 / 115 Cumulative 02/10/22 15:55 thru 02/11/22 14:00 Intake Total 1077.083 Output Total 0 Balance 1077.083 RT Ventilator Mngmt (Last Documented) Ventilator Ordered Settings Ventilator Support Mode Assist Control 02/11/22 22:10 Respiratory Rate 25 02/11/22 22:10 Ventilator Tidal Volume 410 02/11/22 22:10 Setting Minute Ventilation 10.3 02/11/22 22:10 Positive End Expiratory 8 02/11/22 22:10 Pressure Fraction of Inspired Oxygen 50 02/11/22 22:10 Machine Comment CHANGES PER SHIPPERT 02/11/22 22:10 Ventilator - PT Measurements Respiratory Rate 25 Exhaled Tidal Volume 410 Minute Ventilation 10.3 Peak Inspiratory Airway 27 Pressure Plateau Pressure 15.4 Respiratory Cycle Inspiratory: 1:2.0 Expiratory Ratio Inspiratory Phase Time 0.8 Static Lung Compliance 55.41 Dynamic Lung Compliance 21.58 Normal Static Lung Compliance 46.00 Patient Measurements Comment nasal tube 25 at nare Coding Level of Care Code Critical Care 1st 30-74 mins Diagnoses Cardiac arrest I46.9 Status epilepticus G40.901 Pancytopenia D61.818 Alcohol abuse F10.10 Status post liver transplantation Z94.4 LIOR (acute kidney injury) N17.9 Elevated LFTs R79.89 Acute hyponatremia E87.1 Electrolyte abnormality E87.8
--- NOTE | 2022-02-12 01:56 | Procedure Note ---
Procedure Note Date of Service February 12, 2022 Note I responded to a CODE BLUE on the floor in room 244. Upon my arrival multiple personnel were already in the room including RT, several nurses, Dr. Lemus of the [facility] service, Gregg Fuentes, SHELIA, and Dr. Cardenas, [facility] sident. CPR and ACLS prior to my arrival, and they were able to regain pulses. Sinus bradycardia noted on tele with elevated BP. Patient was being bagged by RT was needed at the head of the bed preparing to intubate. Please see the code sheet for details of timing and medications given. Versed was initially pulled as patient's jaw was clenched and could not be opened to insert laryngoscope. This was initially given through the IO in the patient's left tibia. There was no improvement of this so rocuronium was drawn up by nursing staff and again given through the IO in the left tibia. An additional flush was given as a precaution. Patient continued to be easily ventilated by RT using a BVM. An NPA was placed by Gregg to help with this while awaiting relaxation of jaw to allow laryngoscopy. Patient's pulse then became weak and was lost. CPR/ACLS performed again. Patient continued to be bagged. Pulses were able to be regained. Given patient's stroke was still clenched, additional rocuronium was then given through the patient's right upper extremity peripheral IV. They requested I come to the head of the bed to help manage the airway and he would attempt to secure additional central line placement. Patient was still easily bagged although jaw continued to be clenched. A second NPA was placed. Patient again lost pulses and became asystolic. CPR was regained. Dr. Lemus who did contact the patient's family to inform them of the critical nature of the patient's current condition. When I arrived at the head of the bed, patient was also noted to have fixed and dilated pupils. Patient does have significant past medical history, and in discussion of presentation and evolution of symptoms from nurses who are caring for him as well as his current care team, I did not seem that this was an acute airway problem. Given patient's liver dysfunction he had an INR of 3.3. I did not feel an attempt at cricothyrotomy was appropriate at this time and asked nursing staff to obtain a fiberoptic scope from the ICU or ER for an attempt at a nasotracheal intubation as well as for anesthesia on-call to be contacted. Patient continued to be clenched, and when fiberoptic scope arrived we prepared to NT intubation. A 6.5 ETT was loaded onto the scope. I did begin to attempt to begin intubation, frequent suctioning was needed due to mucus noted, however during this anesthesia on-call, Dr. Rogers did arrive. We quickly gave her the history of recent events as patient lost pulses and coded again during this. And I stepped aside to allow her to perform the intubation. Dr. Rogers was able to successfully intubate the patient using the nasotracheal approach. We were able to regain pulses on a blood pressure and arrangements made to transfer the patient to the ICU. Total time spent in code blue: 56 min Coding
--- NOTE | 2022-02-12 06:00 | Communication Note ---
Date of Service: February 12, 2022 Last night 02/11/2022 code shai was called as patient heart rates went down and became unresponsive. As no pulse was noted code blue was called and cpr initiated. After a round of epinephrine patient had pulse but still unresponsive. Difficult to intubate. Patient again lost pulse at which time I called the family about the critical condition of the patient and about cardiac arrest to the family patient sisters. They live 40[place] away and they started to hospital.They wanted to continue CPR and they were aware of the patient critical condition.Patient had pulse bt a lost it. Called family again at that time they were on the way and wanted to continue CPR. Called again few minutes later and by this time patient was down almost probably 50minutes and discussed with family about patients grave condition and told them will try couple more rounds of meds and if no returning of circulation and no response there is no point in continuing the code. Family understood. Patient was pronounced at 2200 on Feb 11 2022.
[2022-02-12 09:17] LABS: Nucleated Red Blood Cells (manual) 33 %
== END 2022-02-11 22:17 | disposition expired | DRG 682 ==
LOC: ED 15:55 → 2S 21:28 → 1E 02-11 21:35